=== PATIENT | male | born 1980 | race Caucasian/White ===

== ENCOUNTER 2021-11-16 17:26 | Observation (INO) | payer OTHER ==
--- NOTE | 2021-11-16 17:30 | ERPHSYRPT ---
- History of Present Illness Time Seen by Provider: 11/16/21 17:30 Source: patient Exam Limitations: no limitations Physician History: This is a 41-year-old white male patient who is diabetic and having COVID symptoms including nausea, vomiting, decreased appetite and decreased oral intake. He has myalgias arthralgias and headache as well. Patient states that he found out that he was positive for COVID 19 infection. He has not taken oral intake well and he is concerned since the vomiting started 2 days ago and has been intermittent and he was feeling more poorly that he needed intravenous fluids. He is having trouble securing in the emergency room visit today and visited several emergency rooms but told her that the wait was very long and therefore he contacted our emergency department and the weight was not as long as the others so he is here for intravenous fluids and management. Timing/Duration: day(s) (5) Cough Quality/Degree: mild, dry cough Possible Cause: no prior episodes Modifying Factors: Improves With: coughing Associated Symptoms: cough, muscle aches, nasal congestion, shortness of breath, No fever, No chest pain/soreness Allergies/Adverse Reactions: No Known Drug Allergies Allergy (Unverified 11/16/21 17:51) Home Medications: Dapagliflozin Propanediol [Farxiga] 11/16/21 [History] Metformin HCl 500 mg [Glucophage 500 MG] 11/16/21 [History] Pen Needle, Diabetic [Bd Ultra-Fine Pen Needle] 11/16/21 [History] Travel Risk - International Travel Have you traveled outside of the country in past 3 weeks: No - Coronavirus Screening Are you exhibiting any of the following symptoms?: Yes Symptoms: Cough: New Onset, Vomiting/Diarrhea, Headaches/Body Aches/Fatigue Close contact with a COVID-19 positive Pt in past 14-21 Days: Yes - Review of Systems Constitutional: Weakness Eyes: No Symptoms Ears, Nose, & Throat: No Symptoms Respiratory: Cough, Dyspnea Cardiac: No Symptoms Abdominal/Gastrointestinal: Nausea, Vomiting, Appetite Changes Genitourinary Symptoms: No Symptoms Musculoskeletal: Arthralgias, Myalgias Skin: No Symptoms Neurological: No Symptoms Psychological: No Symptoms Endocrine: No Symptoms Hematologic/Lymphatic: No Symptoms Immunological/Allergic: No Symptoms All Other Systems: Reviewed and Negative - Past Medical History Pertinent Past Medical History: Yes - Past Surgical History Past Surgical History: Yes - Nursing Vital Signs Nursing Vital Signs: Initial Vital Signs Temperature 98.4 F 11/16/21 17:46 Pulse Rate 95 H 11/16/21 17:46 Respiratory Rate 18 11/16/21 17:46 Blood Pressure 151/88 11/16/21 17:46 O2 Sat by Pulse Oximetry 97 11/16/21 17:46 Pain Scale Pain Intensity 3 - Physical Exam General Appearance: mild distress, alert, anxiety Eye Exam: PERRL/EOMI, eyes nml inspection Ears, Nose, Throat Exam: dry mucous membranes Neck Exam: normal inspection, non-tender, supple, full range of motion Respiratory Exam: normal breath sounds, lungs clear, airway intact, No chest tenderness, No respiratory distress Cardiovascular Exam: regular rate/rhythm, normal heart sounds, normal peripheral pulses Gastrointestinal/Abdomen Exam: soft, normal bowel sounds, No tenderness Rectal Exam: not done Back Exam: normal inspection, normal range of motion, No CVA tenderness, No vertebral tenderness Extremity Exam: normal inspection, normal range of motion, pelvis stable Neurologic Exam: alert, oriented x 3, cooperative, coat examiner II-XII nml as tested, normal mood/affect, nml cerebellar function, nml station & gait, sensation nml Skin Exam: normal color, warm, dry Lymphatic Exam: No adenopathy SpO2 Interpretation: normal O2 Delivery: Room Air - Course Nursing assessment & vital signs reviewed: Yes Ordered Tests: Active Orders 24 hr Category Date Time Status Inside Plant Supervisor STAT Care 11/16/21 17:53 Active IV Insertion STAT Care 11/16/21 17:52 Active Pulse Oximetry (ED) STAT Care 11/16/21 17:52 Active BLOOD CULTURE Stat Lab 11/16/21 18:25 Received CBC W DIFF Stat Lab 11/16/21 18:25 Completed CMP Stat Lab 11/16/21 18:25 Completed CMP Stat Lab 11/16/21 22:36 Completed INFLUENZA A+B EMILY Stat Lab 11/16/21 18:30 Completed Lactic Acid Stat Lab 11/16/21 17:52 Completed Manual Differential NC Stat Lab 11/16/21 18:25 Completed [place] Screen Stat Lab 11/16/21 18:25 Completed UA W/RFX UR CULTURE Stat Lab 11/16/21 20:00 Completed Transfer Order Routine Transfer 11/17/21 Ordered Medication Summary Generic Name Dose Route Start Last Admin Trade Name Freq PRN Reason Stop Dose Admin Sodium Chloride 1,000 mls @ 250 mls/hr 11/16/21 23:45 11/17/21 00:36 Sodium Chloride 0.9% 1000 Ml IV 12/16/21 23:44 250 mls/hr .Q4H DAVE Administration Discontinued Medications Generic Name Dose Route Start Last Admin Trade Name Ellen PRN Reason Stop Dose Admin Hydrocodone Bitart/Acetaminophen 10 ml 11/16/21 18:13 11/16/21 18:29 Hydrocodone/Acetaminophen 5 Ml Udcup PO 11/16/21 18:14 10 ml STAT STA Administration Hydrocodone Bitart/Acetaminophen Confirm 11/16/21 18:27 Hydrocodone/Acetaminophen 5 Ml Udcup Administered 11/16/21 18:28 Dose 10 ml .ROUTE .STK-MED ONE Methylprednisolone Sodium 0 mg 11/16/21 18:13 11/16/21 18:46 Succinate 125 mg/ Sterile IV 11/16/21 18:14 125 mg Water 2 ml STAT ONE Administration Sodium Chloride 1,000 mls @ 999 mls/hr 11/16/21 17:52 11/16/21 19:20 Sodium Chloride 0.9% 1000 Ml IV 11/16/21 18:52 Infused .Q1H1M STA Infusion Sodium Chloride Confirm 11/16/21 18:27 Sodium Chloride 0.9% 1000 Ml Administered 11/16/21 18:28 Dose 1,000 mls @ ud .ROUTE .STK-MED ONE Sodium Chloride 1,000 mls @ 999 mls/hr 11/16/21 19:03 11/16/21 20:29 Sodium Chloride 0.9% 1000 Ml IV 11/16/21 20:03 Infused .Q1H1M STA Infusion Sodium Chloride Confirm 11/16/21 19:18 Sodium Chloride 0.9% 1000 Ml Administered 11/16/21 19:19 Dose 1,000 mls @ ud .ROUTE .STK-MED ONE Sodium Chloride 1,000 mls @ 999 mls/hr 11/16/21 20:43 11/16/21 21:54 Sodium Chloride 0.9% 1000 Ml IV 11/16/21 21:43 Infused .Q1H1M STA Infusion Sodium Chloride Confirm 11/16/21 20:50 Sodium Chloride 0.9% 1000 Ml Administered 11/16/21 20:51 Dose 1,000 mls @ ud .ROUTE .STK-MED ONE Methylprednisolone Sodium Succinate Confirm 11/16/21 18:44 Methylprednis Sod Succ 125 Mg/2 Ml Vial Administered 11/16/21 18:45 Dose 125 mg .ROUTE .STK-MED ONE Ondansetron HCl 4 mg 11/16/21 17:52 11/16/21 18:46 Ondansetron Hcl 4 Mg/2 Ml Vial IV 11/16/21 17:53 4 mg STAT STA Administration Ondansetron HCl Confirm 11/16/21 18:43 Ondansetron Hcl 4 Mg/2 Ml Vial Administered 11/16/21 18:44 Dose 4 mg .ROUTE .STK-MED ONE Sterile Water Confirm 11/16/21 18:44 Water For Injection,Sterile 10 Ml Vial Administered 11/16/21 18:45 Dose 10 ml IJ .STK-MED ONE Lab/Rad Data: Laboratory Result Diagrams 11/16/21 18:25 11/16/21 22:36 Laboratory Results 11/16/21 11/16/21 11/16/21 Range/Units 23:53 22:36 20:00 WBC (4.0-10.5) K/mm3 RBC (4.1-5.6) M/mm3 Hgb (12.5-18.0) gm/dl Hct (42-50) % MCV (78-100) fl MCH (26-32) pg MCHC (32-36) g/dl RDW (11.5-14.0) % Plt Count (150-450) K/mm3 MPV (7.5-11.0) fl Segmented Neutrophils (36.-66.) % Band Neutrophils (0.0-2.0) % Lymphocytes (Manual) (24-44) % Monocytes (Manual) (0.0-12.0) % Platelet Estimate (NORMAL) RBC Morphology Sodium 130 L (137-145) mmol/L Potassium 5.0 (3.5-5.1) mmol/L Chloride 103 (98-107) mmol/L Carbon Dioxide 11 L* (22-30) mmol/L Anion Gap 20.7 H (5-15) MEQ/L BUN 18 (9-20) mg/dL Creatinine 0.65 L (0.66-1.25) mg/dL Estimated GFR > 60.0 ML/MIN Glucose 235 H (74-106) mg/dL Lactic Acid (0.4-2.0) Calcium 7.6 L (8.4-10.2) mg/dL Total Bilirubin 0.50 (0.2-1.3) mg/dL AST 15 L (17-59) U/L ALT 9 (0-50) U/L Alkaline Phosphatase 52 (38-126) U/L Serum Total Protein 5.9 L (6.3-8.2) g/dL Albumin 3.5 (3.5-5.0) g/dL Urine Color YELLOW (YELLOW) Urine Appearance SLIGHTLY CLOUDY (CLEAR) Urine pH 5.0 (5-6) Ur Specific [place] 1.025 (1.005-1.025) Urine Protein 30 (Negative) Urine Ketones MODERATE (NEGATIVE) Urine Blood NEGATIVE (0-5) Alberto/ul Urine Nitrite NEGATIVE (NEGATIVE) Urine Bilirubin NEGATIVE (NEGATIVE) Urine Urobilinogen NEGATIVE (0-1) mg/dL Ur Leukocyte Esterase NEGATIVE (NEGATIVE) Urine WBC (Auto) NONE (0-5) /HPF Urine RBC (Auto) NONE (0-2) /HPF U Epithel Cells (Auto) NONE (FEW) /HPF Urine Bacteria (Auto) NONE (NEGATIVE) /HPF Urine Culture Reflexed NO (NO) Urine Glucose >=500 (NEGATIVE) mg/dL Monoscreen (Negative) Influenza Type A Ag NEGATIVE (NEGATIVE) Influenza Type B Ag NEGATIVE (NEGATIVE) RSV (PCR) NEGATIVE (Negative) SARS-CoV-2 (PCR) POSITIVE A (NEGATIVE) Group A Strep Antibody (NEGATIVE) 11/16/21 11/16/21 11/16/21 Range/Units 18:30 18:30 18:25 WBC (4.0-10.5) K/mm3 RBC (4.1-5.6) M/mm3 Hgb (12.5-18.0) gm/dl Hct (42-50) % MCV (78-100) fl MCH (26-32) pg MCHC (32-36) g/dl RDW (11.5-14.0) % Plt Count (150-450) K/mm3 MPV (7.5-11.0) fl Segmented Neutrophils (36.-66.) % Band Neutrophils (0.0-2.0) % Lymphocytes (Manual) (24-44) % Monocytes (Manual) (0.0-12.0) % Platelet Estimate (NORMAL) RBC Morphology Sodium (137-145) mmol/L Potassium (3.5-5.1) mmol/L Chloride (98-107) mmol/L Carbon Dioxide (22-30) mmol/L Anion Gap (5-15) MEQ/L BUN (9-20) mg/dL Creatinine (0.66-1.25) mg/dL Estimated GFR ML/MIN Glucose (74-106) mg/dL Lactic Acid (0.4-2.0) Calcium (8.4-10.2) mg/dL Total Bilirubin (0.2-1.3) mg/dL AST (17-59) U/L ALT (0-50) U/L Alkaline Phosphatase (38-126) U/L Serum Total Protein (6.3-8.2) g/dL Albumin (3.5-5.0) g/dL Urine Color (YELLOW) Urine Appearance (CLEAR) Urine pH (5-6) Ur Specific [place] (1.005-1.025) Urine Protein (Negative) Urine Ketones (NEGATIVE) Urine Blood (0-5) Alberto/ul Urine Nitrite (NEGATIVE) Urine Bilirubin (NEGATIVE) Urine Urobilinogen (0-1) mg/dL Ur Leukocyte Esterase (NEGATIVE) Urine WBC (Auto) (0-5) /HPF Urine RBC (Auto) (0-2) /HPF U Epithel Cells (Auto) (FEW) /HPF Urine Bacteria (Auto) (NEGATIVE) /HPF Urine Culture Reflexed (NO) Urine Glucose (NEGATIVE) mg/dL Monoscreen NEGATIVE (Negative) Influenza Type A Ag NEGATIVE (NEGATIVE) Influenza Type B Ag NEGATIVE (NEGATIVE) RSV (PCR) (Negative) SARS-CoV-2 (PCR) (NEGATIVE) Group A Strep Antibody NOT DETECTED (NEGATIVE) 11/16/21 11/16/21 11/16/21 Range/Units 18:25 18:25 17:52 WBC 3.0 L (4.0-10.5) K/mm3 RBC 5.16 (4.1-5.6) M/mm3 Hgb 14.6 (12.5-18.0) gm/dl Hct 43.7 (42-50) % MCV 84.7 (78-100) fl MCH 28.3 (26-32) pg MCHC 33.4 (32-36) g/dl RDW 14.9 H (11.5-14.0) % Plt Count 84 L (150-450) K/mm3 MPV 12.1 H (7.5-11.0) fl Segmented Neutrophils 68 H (36.-66.) % Band Neutrophils 19 H (0.0-2.0) % Lymphocytes (Manual) 8 L (24-44) % Monocytes (Manual) 5 (0.0-12.0) % Platelet Estimate NORMAL (NORMAL) RBC Morphology NORMAL Sodium 131 L (137-145) mmol/L Potassium 4.8 (3.5-5.1) mmol/L Chloride 97 L (98-107) mmol/L Carbon Dioxide 14 L* (22-30) mmol/L Anion Gap 24.9 H (5-15) MEQ/L BUN 20 (9-20) mg/dL Creatinine 0.77 (0.66-1.25) mg/dL Estimated GFR > 60.0 ML/MIN Glucose 220 H (74-106) mg/dL Lactic Acid 1.0 (0.4-2.0) Calcium 8.6 (8.4-10.2) mg/dL Total Bilirubin 0.60 (0.2-1.3) mg/dL AST 16 L (17-59) U/L ALT 9 (0-50) U/L Alkaline Phosphatase 65 (38-126) U/L Serum Total Protein 6.2 L (6.3-8.2) g/dL Albumin 4.0 (3.5-5.0) g/dL Urine Color (YELLOW) Urine Appearance (CLEAR) Urine pH (5-6) Ur Specific [place] (1.005-1.025) Urine Protein (Negative) Urine Ketones (NEGATIVE) Urine Blood (0-5) Alberto/ul Urine Nitrite (NEGATIVE) Urine Bilirubin (NEGATIVE) Urine Urobilinogen (0-1) mg/dL Ur Leukocyte Esterase (NEGATIVE) Urine WBC (Auto) (0-5) /HPF Urine RBC (Auto) (0-2) /HPF U Epithel Cells (Auto) (FEW) /HPF Urine Bacteria (Auto) (NEGATIVE) /HPF Urine Culture Reflexed (NO) Urine Glucose (NEGATIVE) mg/dL Monoscreen (Negative) Influenza Type A Ag (NEGATIVE) Influenza Type B Ag (NEGATIVE) RSV (PCR) (Negative) SARS-CoV-2 (PCR) (NEGATIVE) Group A Strep Antibody (NEGATIVE) - Progress Progress: improved, re-examined Air Movement: good Progress Note: 11/17/21 00:57 Medical decision making: This patient is COVID-positive. But the bigger issue in this patient is the DKA which he has improving but not quite ready to go home. I spoke with Dr. Oviedo and we will bring him into the COVID unit and treat his DKA as long as there are beds available. Blood Culture(s) Obtained: Yes Antibiotics given: No Discussed with DrElham: Other (Ivelisse) - Departure Departure Disposition: Observation Clinical Impression: DKA (diabetic ketoacidosis), COVID-19 virus infection Condition: Stable Critical Care Time: Yes Critical Care Time(excluding separately billable procedures): Critical 30-74 mins (30) Referrals: LUCAS SINGH MD [Primary Care Provider] - Follow up/PCP as directed
[2021-11-16] MEDS ORDERED: Sodium Chloride 0.9% 1000 ML 1,000 ML IV STA ×3 (17:52→20:43)
[2021-11-16] MEDS ORDERED: Zofran 4 MG/2 ML VIAL IV STA (17:52)
[2021-11-16] MEDS ORDERED: HYDROCODONE-ACETAMIN 2.5-108/5 ML SOLUTION PO STA (18:13)
[2021-11-16] MEDS ORDERED: solu-MEDROL 125 MG, Sterile H2O 10 ml 2 ML IV ONE ×2 (18:13)
[2021-11-16] MEDS ORDERED: Sodium Chloride 0.9% 1000 ML 1,000 ML ONE ×3 (18:27→20:50)
[2021-11-16] MEDS ORDERED: HYDROCODONE-ACETAMIN 2.5-108/5 ML SOLUTION ONE (18:27)
[2021-11-16] MEDS ORDERED: Zofran 4 MG/2 ML VIAL ONE (18:43)
[2021-11-16] MEDS ORDERED: solu-MEDROL ONE (18:44)
[2021-11-16] MEDS ORDERED: Sterile H2O 10 ml IJ ONE (18:44)
[2021-11-16 18:48] LABS: Hematocrit 43.7 % (42-50); Hemoglobin 14.6 gm/dl (12.5-18.0); Mean Cell Volume 84.7 fl (78-100); Mean Corpuscular Hemoglobin 28.3 pg (26-32); Mean Corpuscular Hgb Concent. 33.4 g/dl (32-36); Mean Platelet Volume 12.1 fl (7.5-11.0); Platelet Count 84 K/mm3 (150-450); Red Blood Count 5.16 M/mm3 (4.1-5.6); Red Cell Distribution Width 14.9 % (11.5-14.0)
[2021-11-16 19:00] LABS: ALKALINE PHOSPHATASE 65 U/L (38-126); ANION GAP 24.9 MEQ/L (5-15); BLOOD UREA NITROGEN 20 mg/dL (9-20); CHLORIDE 97 mmol/L (98-107); Calcium 8.6 mg/dL (8.4-10.2); Creatinine 1 0.77 mg/dL (0.66-1.25); EST GLOMERULAR FILTRATION RATE > 60.0 ML/MIN; Glucose 220 mg/dL (74-106); Potassium 4.8 mmol/L (3.5-5.1); SGOT/AST 16 U/L (17-59); SGPT/ALT 9 U/L (0-50); SODIUM 131 mmol/L (137-145); Total Protein 6.2 g/dL (6.3-8.2)
[2021-11-16 19:11] LABS: INFLUENZA A NEGATIVE (NEGATIVE); INFLUENZA B NEGATIVE (NEGATIVE)
[2021-11-16 19:25] LABS: Carbon Dioxide 14 mmol/L (22-30)
[2021-11-16 20:27] LABS: Appearance SLIGHTLY CLOUDY (CLEAR); Bilirubin NEGATIVE (NEGATIVE); Blood NEGATIVE Ery/ul (0-5); Glucose >=500 mg/dL (NEGATIVE); Ketones MODERATE (NEGATIVE); Leukocyte Esterase NEGATIVE (NEGATIVE); Nitrite NEGATIVE (NEGATIVE); Protein,Urine Dip 30 (Negative); Specific Gravity 1.025 (1.005-1.025); Urobilinogen NEGATIVE mg/dL (0-1)
[2021-11-16 21:39] LABS: BAND 19 % (0.0-2.0); Lymphocytes 8 % (24-44); Monocyte 5 % (0.0-12.0); Neutrophils 68 % (36.-66.); Total Cells Counted 100
[2021-11-16 21:40] LABS: Platelet Estimate NORMAL (NORMAL)
[2021-11-16 22:48] LABS: ALBUMIN 3.5 g/dL (3.5-5.0); ALKALINE PHOSPHATASE 52 U/L (38-126); ANION GAP 20.7 MEQ/L (5-15); BLOOD UREA NITROGEN 18 mg/dL (9-20); CHLORIDE 103 mmol/L (98-107); Calcium 7.6 mg/dL (8.4-10.2); Creatinine 1 0.65 mg/dL (0.66-1.25); EST GLOMERULAR FILTRATION RATE > 60.0 ML/MIN; Glucose 235 mg/dL (74-106); SGOT/AST 15 U/L (17-59); SGPT/ALT 9 U/L (0-50); SODIUM 130 mmol/L (137-145); Total Protein 5.9 g/dL (6.3-8.2)
[2021-11-16 22:54] LABS: Carbon Dioxide 11 mmol/L (22-30)
[2021-11-16] MEDS ORDERED: Sodium Chloride 0.9% 1000 ML 1,000 ML IV SCH (23:45)
[2021-11-17] MEDS ORDERED: Sodium Chloride 0.9% 1000 ML 1,000 ML ONE (00:36)
[2021-11-17 00:37] LABS: INFLUENZA A NEGATIVE (NEGATIVE); INFLUENZA B NEGATIVE (NEGATIVE); RESPIRATORY SYNCTIAL VIRUS NEGATIVE (Negative)
[2021-11-17 00:41] LABS: SARS-CoV-2 Xpert Express POSITIVE (NEGATIVE)
[2021-11-17] MEDS ORDERED: TYLENOL 325 MG PO PRN (02:09)
[2021-11-17] MEDS ORDERED: PROTONIX 40 MG IV IV SCH (02:09)
[2021-11-17] MEDS ORDERED: Zofran 4 MG/2 ML VIAL IV PRN (02:09)
[2021-11-17] MEDS: Sodium Chloride 0.9% 1000 ML 1,000 ML IV SCH ×2 (05:10→09:07)
[2021-11-17] MEDS: HUMULIN R SQ PRN ×3 (05:11→12:09)
[2021-11-17 05:52] LABS: Hematocrit 40.6 % (42-50); Hemoglobin 13.3 gm/dl (12.5-18.0); Mean Cell Volume 86.6 fl (78-100); Mean Corpuscular Hemoglobin 28.4 pg (26-32); Mean Corpuscular Hgb Concent. 32.8 g/dl (32-36); Mean Platelet Volume 11.8 fl (7.5-11.0); Platelet Count 76 K/mm3 (150-450); Red Blood Count 4.69 M/mm3 (4.1-5.6); Red Cell Distribution Width 14.9 % (11.5-14.0); White Blood Count 2.4 K/mm3 (4.0-10.5)
[2021-11-17 06:19] LABS: ALBUMIN 3.2 g/dL (3.5-5.0); ALKALINE PHOSPHATASE 52 U/L (38-126); ANION GAP 22.8 MEQ/L (5-15); BLOOD UREA NITROGEN 22 mg/dL (9-20); CHLORIDE 105 mmol/L (98-107); Calcium 7.6 mg/dL (8.4-10.2); Creatinine 1 0.68 mg/dL (0.66-1.25); EST GLOMERULAR FILTRATION RATE > 60.0 ML/MIN; Glucose 284 mg/dL (74-106); SGOT/AST 18 U/L (17-59); SGPT/ALT 9 U/L (0-50); SODIUM 131 mmol/L (137-145); Total Protein 5.4 g/dL (6.3-8.2)
[2021-11-17 06:46] LABS: Carbon Dioxide 9 mmol/L (22-30)
[2021-11-17 08:40] LABS: BAND 20 % (0.0-2.0); Eosinophil 1 % (0.00-3.0); Lymphocytes 10 % (24-44); Monocyte 3 % (0.0-12.0); Neutrophils 66 % (36.-66.); Nucleated Red Blood Cell 1 %; Total Cells Counted 100
[2021-11-17 08:41] LABS: Platelet Estimate DECREASED (NORMAL)
[2021-11-17] MEDS ORDERED: MEDICATION INTERVENTION PO SCH (09:15)
[2021-11-17] MEDS ORDERED: Glucotrol 5 MG PO SCH (10:00)
[2021-11-17] MEDS ORDERED: Zestril 20 MG PO SCH (10:00)
[2021-11-17] MEDS ORDERED: NON-FORMULARY ITEM (Dapagliflozin Propanediol [Farxiga] 10 MG Tablet) PO SCH (10:00)
[2021-11-17] MEDS ORDERED: Glucophage 500 MG PO SCH (10:00)
--- NOTE | 2021-11-17 12:04 | HP ---
CHIEF COMPLAINT: Abdominal pain, nausea, vomiting for two days. HISTORY OF PRESENT ILLNESS: The patient is a 41-year-old white male who came to the emergency room with the above complaints. He tested COVID positive. He said he is lightheaded on standing. His blood pressure at that time was 110/67. Pain scale was 3. His O2 was in the 90's. He was treated in the emergency room with some Zofran and hydrocodone apparently, which is really Tussionex I think for cough. Methylprednisolone 125 mg and some IV fluids. He does have 9 and 10 -year-old at home who are asymptomatic presently. MEDICATIONS: Metformin 500 mg b.i.d., Farxiga 1 tablet daily, Glipizide 1 tablet b.i.d., NovoLog insulin per scale. ALLERGIES: NKDA. LAB DATA AND TESTS: I do note on his labs on admission his sodium was down to 130, potassium was 5.0. UA slightly concentrated with specific gravity 1.025. Negative for bacteria. Sodium 131, creatinine 0.77. PAST MEDICAL HISTORY: Diabetes mellitus type II. Hypertension. PAST SURGICAL HISTORY: Vasectomy. REVIEW OF SYSTEMS: HEENT: Dry mucosal membranes. CHEST: No achiness. CVS: No heart attacks or hypertension. ABDOMEN: He has got nausea and vomiting which has been prolonged for three days and getting worse. PHYSICAL EXAMINATION: This morning the patient is alert, orientated, appropriately aged. He is drinking and eating Jell-O with no problems. VITAL SIGNS: Pulse 75, respirations 16. O2 saturation 93%. HEENT: Pupils equal and reactive to light. NECK: Supple without adenopathy. CHEST: Clear. CVS: No murmurs or gallops. ABDOMEN: Soft. No masses or organomegaly. EXTREMITIES: Normal. IMPRESSION: The patient has COVID with dehydration and mild diabetic ketoacidosis. He has improved with fluids and insulin. I am going to switch his diet to mechanical soft. He is not on any COVID medicines at the present time and if he eats well he should be able to go home without problems and isolate for ten days. I do note his white count is 2.4 as expected with the COVID. Influenza was negative.
[2021-11-17 12:29] VITALS: BP 99/66
[2021-11-17 12:59] LABS: ALBUMIN 3.2 g/dL (3.5-5.0); ALKALINE PHOSPHATASE 46 U/L (38-126); ANION GAP 16.5 MEQ/L (5-15); BLOOD UREA NITROGEN 21 mg/dL (9-20); CHLORIDE 106 mmol/L (98-107); Calcium 7.7 mg/dL (8.4-10.2); Creatinine 1 0.71 mg/dL (0.66-1.25); EST GLOMERULAR FILTRATION RATE > 60.0 ML/MIN; Glucose 215 mg/dL (74-106); Potassium 5.1 mmol/L (3.5-5.1); SGOT/AST 17 U/L (17-59); SGPT/ALT 8 U/L (0-50); SODIUM 132 mmol/L (137-145); Total Protein 5.6 g/dL (6.3-8.2)
[2021-11-17 13:22] LABS: Carbon Dioxide 15 mmol/L (22-30)
[2021-11-17 14:16] VITALS: PULSE 73; O2SAT 98
[2021-11-18] MEDS ORDERED: PROTONIX 40 MG IV IV SCH (10:00)
== END 2021-11-17 15:52 | disposition home or self-care (01) ==
LOC: ED 17:26 → INTOOBSV 11-17 02:08 → MED SURG 11-17 02:08
PROVIDERS: ADMIT Family Medicine; ATTEND Family Medicine
DX: U07.1 COVID-19 (principal); E11.10 Type 2 diabetes mellitus with ketoacidosis without coma; I10 Essential (primary) hypertension; E86.0 Dehydration; Z79.899 Other long term (current) drug therapy; Z20.828 Contact with and (suspected) exposure to other viral communicable diseases
CPT/HCPCS: 0241U; 36000; 36415; 80053; 81001; 82947; 83036; 83605; 85025; 86308; 87040; 87400; 87651; 93041; 94760; 94762; 96374; 96375; 99284; 99291; 93268; J1815; J2405; J2930; A9270-GY; G0378